=== PATIENT | female | born 1950 | race Caucasian/White ===

== ENCOUNTER 2024-01-18 09:41 | Outpatient (CLI) | payer MEDICARE, SELFPAY ==
--- OUTSIDE RECORDS SUMMARY | 2024-01-18 09:49 | XMS_ITS | Referral Summary ---
Author Organization [facility] Address [address] [place] [address] Care Team Providers Care Can Sealer Name Role Phone Jasmin Hodgson D.O. Primary Care Provide r Source Comments Patient records contain information from all sites at [facility]. For routine questions regarding patient records, call [phone] during business hours, M-F 8:00 AM - 5:00 PM Central Time. Record requests for emergency care only can be directed to [phone] at any time.[facility] Encounters Date Type Department Care Team Description 12/04/2023 Refill Department of Internal Medicine in [place], [place] [address] [place] [phone] Jasmin Perry D.O. Med Refill 11/30/2023 Orders Only [facility] Jasmin Perry D.O. Screening Mammogram Breast Cancer 11/19/2023 Clinical Communication Department of Internal Medicine in [place], [place] [address] [place] [phone] Jasmin Perry D.O. 11/19/2023 11:30 AM CDT Office Visit Department of Obstetrics and Gynecology in [place], [place] [address] [place] [phone] Leni Ballard M.D. Lichen Sclerosus Discharge Disposition: Home or Self Care from Last 3 Months Allergies Active Allergy Reactions Criticality Noted Date Comments Atorvastatin Myalgia 05/22/2006 Citalopram GI intolerance 01/11/2017 Isosorbide Mononitrate Headache High 05/31/2018 Severe headache Oyster Extract GI intolerance 03/23/2016 Oyster Soup Penicillin Itching 07/15/2009 Penicillins Itching 05/22/2006 Medications * This document contains information received from the source organization and may not represent a complete record from that organization. acetaminophen (TYLENOL) 500 mg tablet Take 1,000 mg by mouth once. 2 500 mg tabs q A.M. 7 Active co-enzyme Q-10 (for_CO Q-10) 100 mg capsule Take 100 mg by mouth once a week. Patient takes once a week Active aspirin [address] tabletIndicatio ns:Hypertensive Heart And Chronic Kidney Disease Without Heart Failure And With Stage 1 Chronic Kidney Disease Take 1 tablet (81 mg total) by mouth daily. 90 tablet 11 0 Active dilTIAZem (TIAZAC/TAZTIA XT) 360 mg ER capsule Take 1 capsule (360 mg total) by mouth daily. 90 capsule 3 1 Active nitroglycerin (NITROSTAT) 0.[address] 1 tablet (0.4 mg total) under the tongue every 5 (five) minutes as needed for chest pain. 100 tablet 1 2 Active rosuvastatin (CRESTOR) 20 mg tabletIndicatio ns:Hyperlipidem ia Take 1 tablet (20 mg total) by mouth daily. Takes in am 90 tablet 3 3 04/13/19 26 Active albuterol 90 mcg/actuation inhaler Inhale 1-2 puffs every 4 (four) hours as needed for wheezing or shortness of breath. 5 g 3 4 Active polyethylene glycol (MIRALAX) 17 gram/dose oral powder Take 17 g by mouth as needed for constipation. 3 Active fluticasone propionate (FLONASE) 50 mcg/actuation nasal sprayIndication s:Drip Post Nasal ADMINISTER 2 SPRAYS INTO EACH NOSTRIL TWO TIMES A DAY 48 g 3 4 Active Wegovy 0.25 mg/0.5 mL pen injector injectionIndica tions:Obesity Body Mass Index 30-39.9 Adult INJECT 0.25MG UNDER THE SKIN ONCE WEEKLY 2 mL 3 4 Active Additional Information Patient not taking.Reported on 11/19/2023 clobetasoL (Temovate) 0.05 % ointmentIndicat ions:Lichen Sclerosus Apply topically 2 (two) times a week. At bedtime 30 g 3 4 Active Wegovy 0.5 mg/0.5 mL pen injector injection INJECT 0.5MG UNDER THE SKIN ONCE WEEKLY 2 mL 1 4 Active Active Problems Patient Care Coordination No te Formatting of this note migh t be different from the original. 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 She has a history of injury to her ankles. If pain not improved with PT, she will let me or her PCP know, and I would recommend referral to Orthopedics. Fracture Foot Fifth Metatars al Nondisplaced Closed Initial Right 03/05/2021 Overview (03/20/2021): 03/14/21 Pain is improving. Provide ortho shoe today for use with prolonged walking. Body Mass Index 31.0 To 31.9 Adult 11/22/2020 Discrepancy Leg Length Acquired 07/16/2020 Overview (07/16/2020): PT assessed 06/2020. Left leg about 3/4 shorter than right. he has some chronic muscle tension in the right back from previous injuries. Wearing the right boot had taken work off the left muscle groups. In consultation with the [employer], she tried a 3/4 inch right heel lift which helped the back pain some, but not as much as the boot. She plans to try a 1 lift and follow up with Dr. Wilson. Hypertension Essential Primary 07/16/2020 Overview (03/20/2021): S/p renal artery stent 1976 (fibromuscular dysplasia?). Renal artery dopplers 2020 [facility] no sign stenosis. 03/14/21 Bp < 140/80 on diltiazem 360mg daily Assessment & Plan (07/16/2020 12:01 PM CDT): Repeat renal u/s w dopplers as planned by Dr. Noriega. Other Nonspecific Abnormal Finding Of Lung Field 01/17/2020 Overview (03/20/2021): noted on CT in August 2019 (3 and 4 mm). Per guidelines, optional repeat CT at 12 months; If unchanged, no further follow-up required 03/14/21 --CT chest without contrast to follow up lung nodules Chronic Obstructive Pulmonary Disease Without Ex acerbation 11/01/2019 Overview (06/10/2020): 09/2019 PFTs mild obstruction Assessment & Plan (11/01/2019 2:49 PM CDT): Chronic obstructive pulmonary disease is definitely playing into the etiology of the shortness of breath. Polyp Colon Personal History, Unspecified Type 0 05/31/2018 Overview (06/10/2020): ESOPHAGOGASTRODUODENOSCOPY 01/05/2011 COLONOSCOPY 08/07/2008 COLONOSCOPY 12/12/2013 COLONOSCOPY 08/29/2018 2mm polyp Repeat colonoscopy 08/2023 if we decide to continue screening. Cyst Renal 01/17/2018 Overview (01/17/2018): Bilateral per CT scan of abdomen and pelvis 12/09/2016. 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 She fell on 04/17/20 after falling asleep while sitting on a high chair. She fractured an ankle and noted that while she was wearing her ortho boot she had no back pain or hip pain. Pain recurred after stopping the boot. She saw Dr. Wilson in Sports Medicine on 12/30/20. 03/14/2021 --If she does not have acceptable improvement with water based rehab, the plan is to repeat MRI lumbar spine and refer to pain clinic for consideration of medial branch blocks to the left L4-L5 and L5-S1 facet joints with consideration of radiofrequency denervation. She wants to defer interventions unless pain is severe --Continue with [facility] for physical therapy --consider medication strategies: duloxetine, gabapentin or pregabalin --consider trying [facility], a self guided chronic pain kaylah with a biopsychosocial approach Assessment & Plan (06/10/2020 1:47 PM CDT): She checked in with [employer] who can provide heel lift/insert. --referral to [employer] for orthotics --referral to [facility] if measurements for leg length difference needed PreDiabetes 06/12/2017 Overview (03/20/2021): A1C 6 in May 2019. 03/14/21 Due for repeat A1C w next labs. Osteoporosis 06/12/2017 Overview (03/20/2021): 04/25/2020 right distal lateral malleolus fracture after stepping off a high chair with foot numbness (due to falling asleep in the chair with feet/ankles crossed). 02/2021 right fifth planax fracture after toe injury DEXA 2018 and DEXA 06/2020 Osteopenia. 06/2020 VitD 28, Calcium 9.7, alk phos 123, PTH 49 03/14/21 Given the above fractures, I recommended bisphosphonate therapy. She will have a dental exam and any needed dental work, then start fosamax 70mg weekly x 5 years. --Repeat DEXA 03/2023. --Continue regular exercise, strength training 2x/week. --Take Vitamin D 3 1000 IU daily --Obtain Calcium 1200mg daily from all sources (diet + supplement) Assessment & Plan (06/10/2020 1:58 PM CDT): --repeat DEXA --repeat VitD, Calcium, PTH, and protein levels (elevated at [facility]) Anxiety 12/25/2016 Overview (03/20/2021): GAD7 Score 12/10/2016 10/16/2019 ALEKSANDER-7 Total Score (max 21) 6 1 PHQ9 Score 10/16/2019 PHQ-9 Total Score (max 27) 3 Tumor Benign Adrenal Left 12/10/2016 Overview (06/10/2020): 2 cm (noted on CT in 08/2019) She was evaluated by Dr. Oliveira with endocrinology. She had a negative biochemical evaluation as well as repeat abdominal CT imaging. Results were consistent with a non-functional benign adrenal adenoma. Re-evaluate the patient in the future only if she redevelops spells, unexplained swelling, Cushingoid appearing features, unexplained hypertension, or hypokalemia. Assessment & Plan (11/01/2019 2:48 PM CDT): October 15 CT shows a benign adenoma Lichen Sclerosus 05/18/2016 Overview (11/19/2023): Stable vulvar findings. Occasional exacerbations well managed with clobetasol oitment. Vulvar care handout provided in the past and she counseled on lifestyle modifications that can help with this in the past. Continue topical clobetasol ointment twice weekly at bedtime, and she was encouraged to do this on a scheduled basis. Smoking Tobacco Use Personal History 05/18/2016 Coronary Artery Disease With Stable Angina 04/23 Overview (03/20/2021): History of microvascular angina. Seen by Dr. Heard 11/[address] Hatch 09/2011, Dr. Gomes 07/2019. Normal coronaries on [facility] 01/2011 (after abnormal NST; no endothelial function studies performed); Mild CAD 08/2005. Intolerant to isosorbide mononitrate??(severe headache). She is seen by Dr. Noriega at [facility] and is now enrolled in a cardiac study related to small vessel coronary artery disease. Diltiazem increased from 240mg to 320mg 07/15/20. For unclear reasons, she had two months without angina following MAB infusion for COVID-19. 03/14/21 Consider adding Ranexa. Assessment & Plan (07/26/2023 10:47 AM CDT): Patient is followed by cardiology. Assessment & Plan (06/10/2020 1:40 PM CDT): Follow up with Dr. Noriega as planned Hypercholesterolemia 03/09/2011 Overview (03/20/2021): Images from the original note were not included. 03/14/21 LDL < 70 on rosuvastatin 20mg daily Assessment & Plan (06/10/2020 1:42 PM CDT): Continue simvastatin 20mg daily Anisocoria 12/16/2009 Overview (05/04/2017): Right pupil larger than Left pupil Stenosis Renal Artery 06/30/2008 Overview (07/28/2023): S/p renal artery stent 1976 (fibromuscular dysplasia?). 1976, Dr. Powell at [facility] for malignant hypertension. Assessment & Plan (11/01/2019 2:44 PM CDT): Her blood pressure is normal. Renal artery stenosis has improved since having surgery 20 years ago. Resolved Problems Problem Noted Date Diagnosed Date Resolved Date Infection Upper Respiratory 05/25/2023 05/25/2023 COVID-19 Infection 11/23/2020 Pressure Head 07/16/2020 03/20/2021 Overview (07/16/2020): When she walks she gets tightness and achiness that goes to the back of the head and neck. 07/15/20 Dr. Noriega ordered ordered a CTA head and neck. Abnormality Of Plasma Protein Unspecified 06/10/2020 03/20/2021 Overview (03/20/2021): Normalized. No further evaluation needed. Fracture Fibula Lateral Mall eolus Nondisplaced Sequela Right 06/10/2020 03/20/2021 Pain Shoulder Right 05/13/2020 03/14/20 21 Adrenal Gland Disorder 11/01/201906/10 Overview (11/01/2019): Adrenal gland disorder Assessment & Plan (11/01/2019 2:47 PM CDT): CT of the chest done in September showed a nodule on her adrenal gland as well as 2 pulmonary nodules. Narrative & Impression EXAM: CT CHEST WITHOUT IV CONTRAST 3D/MIPS: 3D Post-Processing performed on a dependent workstation. ?? COMPARISON: None ?? FINDINGS: Indeterminate solid pulmonary nodules measure 3 mm in the lateral right lower lobe (series 3, image 444) and 4 mm in the posterior right lower lobe (series 3, image 382). Follow-up guidelines are below. Subsegmental atelectasis in the right middle lobe, lingula, and left base. No consolidation. No pleural effusion. No pneumothorax. Central tracheobronchial tree is patent. ?? Normal heart size. No pericardial effusion. Normal caliber thoracic aorta with mild calcification. No thoracic lymphadenopathy. ?? 2.0 cm left adrenal nodule compatible with adrenal. Cholecystectomy. Mild degenerative change. Segmentation anomaly at C2 with convex left curve. ?? GUIDELINES FOR FOLLOW-UP of newly detected solid nodules incidentally detected on CT in persons 35 years or older. (2017 revision) ?? LOW-RISK PATIENT (Minimal or absent history or smoking or of other known risk factors) ?? For multiple nodules, size of largest nodule: <6mm- No routine follow-up required 6mm or>- CT at 3-6 months, then consider CT at 18-24 months ?? HIGH-RISK PATIENT (History of smoking or of other known risk factors) For multiple nodules, size of largest nodule: <6mm- Optional CT at 12 months*; If unchanged, no further follow-up required 6mm or>- CT at 3-6 months, then consider CT at 18-24 months ?? IMPRESSION: 1. Indeterminate solid pulmonary nodules measuring 4 mm or smaller. Follow-up guidelines are below. 2. Scattered subsegmental atelectasis. No consolidation or effusion. Tachycardia Paroxysmal 11/01/201906/10 Overview (06/10/2020): Paroxysmal tachycardia with low oxygen saturations Paroxysmal tachycardia with low oxygen saturations Last Assessment & Plan: She had recently been in the [facility] and was at an elevation of over 9200 ft. During that time she was feeling chest heaviness and heart palpitations. She was very short of breath. She did have a pulse oxygen machine with her as well as a portable oxygen machine. These belong to her . She had been having symptomatology of heavy chest and shortness of breath for years. She had recent workup with [facility] which yielded negative results for any blockage or pulmonary issues. She is requesting a referral to [facility]. She feels that something is wrong and she would like to get to the bottom of it. She showed me a log that she kept. On October 08 she became short of breath with chest heaviness. Her pulse went to 136 and her oxygen saturation went down in 79%. She has many days of oxygen saturation and pulse readings. Fortunately she had had her portable oxygen with her was able to wear oxygen. She becomes short of breath when walking. She is relating an incident over 20 years ago when she was having similar symptoms. She had surgery to remove a growth that was pushing on her renal artery. She is feeling similar today and is looking for a referral. She will go to the ER if she should have further symptoms. Assessment & Plan (11/01/2019 2:44 PM CDT): She had recently been in the [facility] and was at an elevation of over 9200 ft. During that time she was feeling chest heaviness and heart palpitations. She was very short of breath. She did have a pulse oxygen machine with her as well as a portable oxygen machine. These belong to her . She had been having symptomatology of heavy chest and shortness of breath for years. She had recent workup with [facility] which yielded negative results for any blockage or pulmonary issues. She is requesting a referral to [facility]. She feels that something is wrong and she would like to get to the bottom of it. She showed me a log that she kept. On October 08 she became short of breath with chest heaviness. Her pulse went to 136 and her oxygen saturation went down in 79%. She has many days of oxygen saturation and pulse readings. Fortunately she had had her portable oxygen with her was able to wear oxygen. She becomes short of breath when walking. She is relating an incident over 20 years ago when she was having similar symptoms. She had surgery to remove a growth that was pushing on her renal artery. She is feeling similar today and is looking for a referral. She will go to the ER if she should have further symptoms. Elevated Liver Enzyme Test 12/12/2018 0 06/10/2020 Cough Unspecified Type 12/05/201706/10 Hypercalcemia 12/05/2017 06/10/2020 Pain Flank 08/30/2017 06/10/2020 Overview (08/30/2017): Right History Of Falling 08/30/2017 1 Release Carpal Tunnel Status Post 06/12/2017 06/10/2020 Carpal tunnel syndrome 11/17/201606/10 Hypertensive Heart And Chron ic Kidney Disease Without Heart Failure With Stage 1 To 4 Chronic Kidney Disease Or Unspecified Chronic Kidney Disease 11/13/2016 06/10/2020 Elevated Alkaline Phosphatase 05/18/2016 06/10/2020 Fatigue 05/18/2016 06/10/2020 Hemorrhoids 05/18/2016 06/10/2020 Prolapse Vaginal Vault Post Hysterectomy 05/18/2016 06/10/2020 Scoliosis 05/18/2016 03/20/2021 Reaction Stress Acute 05/27/20152020 Eczema 08/24/2013 06/10/2020 High Risk Medication 08/09/2013 021 Pain Knee 12/29/2010 06/10/2020 Degeneration Disc Cervical 08/28/2010 0 06/10/2020 Vaginitis Atrophic 12/16/2009 Ileus Gallstone 10/28/2009 08/08/2018 Overview (08/18/2016): Gallstone Osteoarthritis 06/30/2008 06/10/2020 Atherosclerosis Renal Artery 06/30/2008 06/10/2020 Gastroesophageal Reflux Disease 06/25/2008 06/10/2020 Immunizations Name Administration Dates Next Due DTaP (Infanrix, [employer]) 03/27/2009 Influenza high dose QV(65 ye ars or older) (PF) 01/23/2020 Influenza, Unspecified 01/28/2016,2014,11/20/2013,2012,02/08/2012,12/29/2010,02/10/2010,1 05/05/2008,01/23/2008,02/10/2007, 006,02/18/2004 PCV20 07/08/2023(Deferred: Patient gianna christine) PPD Test 10/10/2018 RZV (SHINGRIX) 07/08/2023(Deferred: Patient gianna christine) SARS-COV-2 (COVID-19) - MODE RNA BIVALENT(Discontinued) 07/08/2023(Deferred: Patient decision) Tdap 07/08/2023(Deferred: Patient decision),03/27/2009 influenza trivalent high dos e (HD)(PF) 03/27/2019,01/16/2018,04/10/2017 influenza trivalent vaccine (6 months and older)(PF) 07/08/2023(Deferred: Patient decision) Social History Tobacco Use Types Packs/Day Years Used Date Smoking Tobacco: Former Cigarettes 1.5 43 1 962 - 2005 Passive Smoke Exposure: Past Smokeless Tobacco: Never Tobacco Cessation:Counseling Given: Not Answered Alcohol Use Standard Drinks/Week Comments Yes 0 (1 standard drink = 0.6 oz pur e alcohol) 2-4 times per month Humiliation, Afraid, Rape, and Kick questionnair e Answer Date Recorded Within the last year, have y ou been afraid of your partner or ex-partner? No 01/22/2023 Within the last year, have y ou been humiliated or emotionally abused in other ways by your partner or ex-partner? No Within the last year, have y ou been kicked, hit, slapped, or otherwise physically hurt by your partner or ex-partner? No 01/22/2023 Within the last year, have y ou been raped or forced to have any kind of sexual activity by your partner or ex-partner? No 01/22/2023 Social Connection and Isolat ion Panel [NHANES] Answer Date Recorded In a typical week, how many times do you talk on the phone with family, friends, or neighbors? More than three times a week 12/07/2021 How often do you get togethe r with friends or relatives? More than three times a week 12/07/2021 How often do you attend chur or mandaen services? Patient declined 12/07/2021 Do you belong to any clubs o r organizations such as baptist groups, unions, fraternal or athletic groups, or school groups? No 12/07/2021 How often do you attend meet ings of the clubs or organizations you belong to? Never 12/07/2021 Are you , , di vorced, , never , or living with a partner? 12/07/2021 AUDIT-C Answer Date Recorded Q1: How often do you have a drink containing alc ohol? 2-4 times a month 12/07/2021 Q2: How many drinks containi ng alcohol do you have on a typical day when you are drinking? 1 or 2 12/07/2021 Q3: How often do you have si x or more drinks on one occasion? Never 12/07/2021 Overall Financial Resource Strain (CARDIA) Answe r Date Recorded How hard is it for you to pa y for the very basics like food, housing, medical care, and heating? Not hard at all 01/19/2023 PHQ-2 Answer Date Recorded PHQ-2 Score 0 07/28/2023 [facility] - Occupational Stress Questionnaire Answer Date Recorded Do you feel stress - tense, restless, nervous, or anxious, or unable to sleep at night because your mind is troubled all the time - these days? Not at all 12/07/2021 Exercise Vital Sign Answer Date Recorde d On average, how many days pe r week do you engage in moderate to strenuous exercise (like a brisk walk)? 2 days 01/19/2023 On average, how many minutes do you engage in exercise at this level? 40 min 01/19/2023 Hunger Vital Sign Answer Date Recorded Within the past 12 months, y ou worried that your food would run out before you got the money to buy more. Never true 01/20/20 Within the past 12 months, t he food you bought just didn't last and you didn't have money to get more. Never true 01/19/2023 PRAPARE - Transportation Answer Date Re corded In the past 12 months, has l ack of transportation kept you from medical appointments or from getting medications? No 12/28 In the past 12 months, has l ack of transportation kept you from meetings, work, or from getting things needed for daily living? No 01/19/2023 Depression Answer Date Recor ded PHQ-9 Total Score (max 27) 3 10/15 Nutrition Answer Date Recorded On average, how many serving s of fruits and vegetables do you eat per day (serving size is equal to 1 cup or approximately the size of a tennis ball)? 0-2 01/19/2023 Dental Answer Date Recorded Dental: Regular Dentist Yes 05/28/19 Employment Answer Date Recorded Employment status Retired 01/19/2023 Housing Stability Answer Date Recorded What is your living situation today? I have a [employer] place to live 01/19/2023 Education Answer Date Recorded What is the highest level of school you have completed or the highest degree you have received? 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 Not on file Not on file Not on file Last Filed Vital Signs Vital Sign Reading Time Taken Comments Blood Pressure 125/55 11/19/2023 11:31 AM CDT Pulse 67 11/19/2023 11:31 AM CDT Temperature 36 ??C (96.8 ??F) 11/19/2023 11:31 AM CDT Respiratory Rate 16 09/24/2023 12:53 PM CDT Oxygen Saturation 96% 09/24/2023 12:53 PM CDT Inhaled Oxygen Concentration - - Weight 69.6 kg (153 lb 7 oz) 11/19/2023 11:31 AM CDT Height 151.6 cm (4' 11.69) 11/19/2023 11:31 AM CDT Body Mass Index 30.28 11/19/2023 11:31 AM CDT Plan of Treatment Upcoming Encounters Date Type Department Care Team (Late st Contact Info) Description 01/26/2024 10:30 AM CDT Appointment Department of Radiology in [place] [address] [place] [phone] Jasmin Hodgson D.O. [address] [place] [phone] Discharge Disposition: Home or Self Care Goals Goal Patient Goal Type Associated Problems Recent Progress Patient-Stated? Author Eat a balanced, healthy diet Diet No Tiffanie Jarvis R.N. Note: Continue eating a balanced, healthy diet 30 minutes 3x a week Exercise No Tiffanie Jarvis R.N. Increase physical activity Exercise No Tiffanie Jarvis R.N. Improve balance, strength, and endurance Exercise No Tiffanie Jarvis R.N. 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 A negative Cologuard result indicates a low likelihood that a colorectal cancer (CRC) or advanced adenoma (adenomatous polyps with more advanced pre-malignant features) ??is present. The chance that a person with a negative Cologuard test has a colorectal cancer is less than 1 in 1500 (negative predictive value >99.9%) or has an ??advanced adenoma is less than ??5.3% (negative predictive value 94.7%). These data are based on a prospective cross-sectional study of 10,000 individuals at average risk for colorectal cancer who were screened with both Cologuard and colonoscopy. (Alem Nesbitt al, N Engl J Med 2014;370(14):7850-2078) The normal value (reference range) for this assay is negative. COLOGUARD RE-SCREENING RECOMMENDATION: Periodic colorectal cancer screening is an important part of preventive healthcare for asymptomatic individuals at average risk for colorectal cancer. ??Following a negative Cologuard result, the [place] Cancer Society and U.S. Multi-Society Task Force screening guidelines recommend a Cologuard re-screening interval of 3 years. References: [place] [employer] Guideline for Colorectal Cancer Screening: https://www.cancer.org/cancer/ctprz-gjmoqb-hduedy/detection- diagnosis-staging/acs-recommendations.html.; Anibal DK, Rupinder CR, Jacqueline GipsonK, Colorectal Cancer Screening: Recommendations for Physicians and Patients from the U.S. Multi-Society Task Force on Colorectal Cancer Screening , Am J Gastroenterology 2017; 112:1112-6058. TEST DESCRIPTION: Composite algorithmic analysis of stool DNA-biomarkers with hemoglobin immunoassay. ?? Quantitative values of individual biomarkers are not reportable and are not associated with individual biomarker result reference ranges. Cologuard is intended for colorectal cancer screening of adults of either sex, 45 years or older, who are at average-risk for colorectal cancer (CRC). Cologuard has been approved for use by the U.S. FDA. The performance of Cologuard was established in a cross sectional study of average-risk adults aged 50-84. Cologuard performance in patients ages 45 to 49 years was estimated by sub-group analysis of near-age groups. Colonoscopies performed for a positive result may find as the most clinically significant lesion: colorectal cancer [4.0%], advanced adenoma (including sessile serrated polyps greater than or equal to 1cm diameter) [20%] or non- advanced adenoma [31%]; or no colorectal neoplasia [45%]. These estimates are derived from a prospective cross-sectional screening study of 10,000 individuals at average risk for colorectal cancer who were screened with both Cologuard and colonoscopy. (Alem George et al, N Engl J Med 2014;370(14):5152-8871.) Cologuard may produce a false negative or false positive result (no colorectal cancer or precancerous polyp present at colonoscopy follow up). A negative Cologuard test result does not guarantee the absence of CRC or advanced adenoma (pre-cancer). The current Cologuard screening interval is every 3 years. ([place] [employer] Society and U.S. Multi-Society Task Force). Cologuard performance data in a 10,000 patient pivotal study using colonoscopy as the reference method can be accessed at the following location: www.IM5/results. Additional description of the Cologuard test process, warnings and precautions can be found at www.cologuard.com. Stool (Stool) 08/24/2023 8:1 0 AM CDT 08/25/2023 10:18 AM CDT us Jasmin Hodgson D.O. LAB BODY FLUIDS AND S TOOLS ORDERABLES Final Result [facility] [address] [place] [address] [facility] [address] [facility], [address] [place] [address] * Lipid Panel (07/28/2023 1:04 PM CDT) Triglycerides 82 mg/dL 07/28/2023 3:09 PM CDT [facility] Comment: ----REFERENCE VALUE---- Normal: <150 mg/dL Borderline High: 150-199 mg/dL High: 200-499 mg/dL Very High: > or =500 mg/dL Cholesterol, Total 140 mg/dL 2023 3:09 PM CDT [facility] Comment: ----REFERENCE VALUE---- Desirable: < 200 mg/dL Borderline High: 200 - 239 mg/dL High: > or = 240 mg/dL Cholesterol, LDL, Calculated 50 mg/dL 07/28/2023 3:09 PM CDT [facility] Comment: ----REFERENCE VALUE---- Desirable: <100 mg/dL Above Desirable: 100-129 mg/dL Borderline High: 130-159 mg/dL High: 160-189 mg/dL Very High: >=190 mg/dL ----ADDITIONAL INFORMATION---- LDL cholesterol calculated using the Ansari/NIH equation. Cholesterol, HDL 74 >=50 mg/dL 07/28/19 3:09 PM CDT [facility] Cholesterol, Non-HDL, Calculated 66 mg/dL 07/28/2023 3:09 PM CDT [facility] Comment: ----REFERENCE VALUE---- Desirable: <130 mg/dL Above Desirable: 130-159 mg/dL Borderline High: 160-189 mg/dL High: 190-219 mg/dL Very High: > or =220 mg/dL Fasting (8 HR or more) Yes 07/28/2023 1:10 PM CDT [facility] Blood (Blood, Venous) 07/28/2023 1:04 PM CDT 07/28/2023 1:10 PM CDT us Jasmin Hodgson D.O. LAB BLOOD ADD-ON Makenna leal Result [facility] [address] [place] [address], [facility] [place] [address] [place] [address] * (ABNORMAL) Hemoglobin A1c (07/28/2023 1:04 PM CDT) Hemoglobin A1c, B 5.8(H) 4.2 - 5.6 % 07/28/2023 2:23 PM CDT OW[facility] Comment: Hemoglobin A1c values of 5.7-6.4 percent indicate an increased risk for developing diabetes mellitus. In diabetic patients, HbA1c goals should be discussed with healthcare provider. Blood (Blood, Venous) 07/28/2023 1:04 PM CDT 07/28/2023 1:10 PM CDT us Jasmin Hodgson D.O. LAB BLOOD ADD-ON Makenna l Result [facility] [address] [place] [address], [facility] [place] [address] [place] [address] * BI Breast Screening Bilateral with Tomosynthesis (12/18/2022 9:23 AM CDT) Anatomical Region Laterality Modality Breast, Breast Imaging RST L OS, Breast Imaging ARZ LOS, Breast Imaging FLA LOS Bilateral Mammography 12/18/2022 9:40 AM CDT Impressions 12/18/2022 9:42 AM CDT Negative. RECOMMENDATION: ??Annual Screening Mammogram ASSESSMENT: ??BI-RADS: 1: Negative. Narrative 12/18/2022 9:42 AM CDT EXAM: ??BI BREAST SCREENING BILATERAL WITH TOMOSYNTHESIS Current study was evaluated with a Computer Aided Detection (CAD) system. INDICATION: ??Screening mammogram. COMPARISON: ??Prior exam(s) were available and reviewed for comparison. DENSITY: ??b. There are scattered areas of fibroglandular density. FINDINGS: ??No mammographic findings of malignancy. Procedure Note Tima Miles M.D. - 12/18/2022 EXAM: BI BREAST SCREENING BILATERAL WITH TOMOSYNTHESIS Current study was evaluated with a Computer Aided Detection (CAD) system. INDICATION: Screening mammogram. COMPARISON: Prior exam(s) were available and reviewed for comparison. DENSITY: b. There are scattered areas of fibroglandular density. FINDINGS: No mammographic findings of malignancy. IMPRESSION: Negative. RECOMMENDATION: Annual Screening Mammogram ASSESSMENT: BI-RADS: 1: Negative. Jasmin Hodgson D.O. IMWolf BI PROCEDURES Fin al Result * CT Chest without IV Contrast (04/01/2021 10:33 AM KEYCASE ASSEMBLER) Anatomical Region Laterality Modality Chest, Thoracic RST LOS, Tho racic ARZ LOS, Thoracic FLA LOS N/A Computed Tomography 04/01/2021 11:4 7 AM KEYCASE ASSEMBLER Impressions 04/01/2021 11:50 AM KEYCASE ASSEMBLER Stable sub-4 mm pulmonary nodules compared to 09/25/2019. No new or enlarging pulmonary nodules. Consider additional follow-up CT in 12-18 months. Narrative 04/01/2021 11:50 AM KEYCASE ASSEMBLER EXAM: CT CHEST WITHOUT IV CONTRAST 3D/MIPS: 3D Post-Processing performed on a dependent workstation. COMPARISON: 09/25/2019 FINDINGS: Scattered bilateral sub-4 mm pulmonary nodules are unchanged compared to 09/25/2019. No new or enlarging pulmonary nodules. Stable bibasilar scarring/atelectasis. No pleural effusion or evidence for acute infection. Central tracheobronchial tree is clear. Normal heart size. No pericardial effusion. Aortic calcifications. No lymphadenopathy. Cholecystectomy. Right renal cyst. Stable 2 cm left adrenal adenoma. Scoliotic curvature of the spine. Mild spondylosis. No acute or suspicious bone or soft tissue finding. Procedure Note Sawyer Russ M.D. - 04/01/2021 EXAM: CT CHEST WITHOUT IV CONTRAST 3D/MIPS: 3D Post-Processing performed on a dependent workstation. COMPARISON: 09/25/2019 FINDINGS: Scattered bilateral sub-4 mm pulmonary nodules are unchangedcompared to 09/25/2019. No new or enlarging pulmonary nodules. Stable bibasilar scarring/atelectasis. No pleural effusion or evidence for acuteinfection. Central tracheobronchial tree is clear. Normal heart size. No pericardial effusion. Aortic calcifications. No lymphadenopathy. Cholecystectomy. Right renal cyst. Stable 2 cm left adrenal adenoma.Scoliotic curvature of the spine. Mild spondylosis. No acute or suspicious bone orsoft tissue finding. IMPRESSION: Stable sub-4 mm pulmonary nodules compared to 09/25/2019. No new orenlarging pulmonary nodules. Consider additional follow-up CT in 12-18 months. Nga Yip M.D., M.P.H. IMG CT PROCEDURES Final Result * HCV Ab w/Reflex to HCV PCR, S (medicare) (05/14/2016 8:10 AM KEYCASE ASSEMBLER) HXHCV Ab [facility] Negative Negative POWERCHART Comment: Udfoob-ik-qgoeof ratio is <1.00. Test Performed by: [place] [address] Blood Bank Attendant: Kvng Ayers II, M.D., Ph.D. Blood 05/14/2016 8:10 AM KEYCASE ASSEMBLER Branden Woods M.D. LAB MICROBIOLOGY - BLOOD ORDERAB LES Final Result POWERCHART from Last 3 Months or Most Recently Relevant to Health Maintenance Insurance [facility] Advance Directives For more information, please contact: [phone] Documents on File Type Date Recorded Patient Perinatal Social Worker Expl anation Advance Directives 12/13/2018 2:15 PM POA for healthcare Healthcare Agents on File Name Relationship Healthcare Agent Relationshi p Communication Nuria Kirkland Daughter Health Care Agent Jazmine Salmon Daughter First Alternate Health Car e Agent Care Teams Can Sealer Relationship Specialty Start Date End Date Jasmin Hodgson D.O. [address] [place] [phone] PCP - General Internal Medicine 06/03/21
--- OUTSIDE RECORDS SUMMARY | 2024-01-18 09:49 | XMS_ITS | Encounter Summary ---
Author Organization [facility] Address [address] [place] [address] Care Team Providers Care Breakfast Supervisor Name Role Phone Jasmin Hodgson D.OLexa Primary Care Provide r Reason for Visit * Reason Comments Med Refill Encounter Details Date Type Department Care Team (Late st Contact Info) Description 12/04/2023 Refill Department of Internal Medicine in [place], [place] [address] [phone] Jasmin Hodgson, D.O. [address] [phone] Med Refill Social History Tobacco Use Types Packs/Day Years Used Date Smoking Tobacco: Former Cigarettes 1.5 43 1 962 - 2005 Passive Smoke Exposure: Past Smokeless Tobacco: Never Alcohol Use Standard Drinks/Week Comments Yes 0 [...] week 12/07/2021 How often do you attend [facility] or buddhism services? Patient declined 12/07/2021 Do you belong to any clubs o r organizations such as jew groups, unions, fraternal or athletic groups, or [...] Answer Date Recorded PHQ-2 Score 0 07/28/2023 [facility] [place] [facility] Occupat ional Health - Occupational Stress [...] money to buy more. Never true 01/20/20 23 Within the past 12 months, t he [...] your living situation today? I have a [facility] place to live 01/19/2023 Education Answer Date Recorded What is the highest level of school you have completed or the highest degree you have received? 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 [address] [place] [address] Discharge Disposition: Home or Self Care documented as of this encounter Goals Goal Patient Goal Type Associated Problems Recent Progress Patient-Stated? Author Eat a balanced, healthy diet Diet No Tiffanie Jarvis R.N. Note: Continue eating a balanced, healthy diet 30 minutes 3x a week Exercise No Tiffanie Jarvis R.N. Increase physical activity Exercise No Tiffanie Jarvis R.N. Improve balance, strength, and endurance Exercise No Tiffanie Jarvis R.N. Note: Improve strength in ankles documented as of this encounter Visit Diagnoses Not on filedocumented in this encounter Additional Health Concerns Assessment Noted Time PHQ-9 Depression Total Score: 3 10/16/19 20 1:30 PM CDT documented as of this encounter Care Teams Breakfast Supervisor Relationship Specialty Start Date End Date Jasmin Hodgson D.O. [address] [place] [phone] PCP - General Internal Medicine 06/03/21 documented as of this encounter
--- OUTSIDE RECORDS SUMMARY | 2024-01-18 09:49 | XMS_ITS | Encounter Summary ---
Author Organization [facility] Address [address] [place] [address] Care Team Providers Care Aircraft Technician Name Role Phone Jasmin Hodgson D.O. Primary Care Provide r Reason for Referral * Outpatient (Routine) - Authorized Specialty Diagnoses / Procedures Referred By Contac t Referred To Contact Obstetrics and Gynecology Diagnoses Lichen Sclerosus Rosita Beckham M.D. [facility] Referral ID Status Reason Start Date Expiration Date V isits Requested Visits Authorized [id number] Authorized 11/19/2023 05/20/2025 1 1 Reason for Visit * Reason Comments Gynecologic Exam No concerns * Appointment Request (Routine) - Closed Specialty Diagnoses / Procedures Referred By Contac t Referred To Contact Obstetrics and Gynecology Referral ID Status Reason Start Date Expiration Date Visits Re quested Visits Authorized [id number] Closed 09/07/2023 09/06/2024 1 1 Encounter Details Date Type Department Care Team (Late st Contact Info) Description 11/19/2023 11:30 AM CDT Office Visit Department of Obstetrics and Gynecology in [place], [place] [address] [place] [phone] Rosita Beckham M.D. Lichen Sclerosus Discharge Disposition: Home or Self Care Social History Tobacco Use Types Packs/Day Years [...] How often do you attend chur or episcopal services? Patient declined 12/07/2021 Do you belong to any clubs o r organizations such as methodist groups, unions, fraternal or athletic groups, or [...] Answer Date Recorded PHQ-2 Score 0 07/28/2023 [facility] - Occupational Stress Questionnaire Answer Date Recorded [...] Date Recorded Dental: Regular Dentist Yes 05/28/19 21 Employment Answer Date Recorded Employment status Retired 01/19/2023 Housing Stability Answer Date Recorded What is your living situation today? I have a [facility] place to live 01/19/2023 Education Answer Date Recorded What is the highest level of school you have completed or the highest degree you have received? 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 - 11/19/2023 11:30 AM CDT Images from the original note were not included. SUBJECTIVE DYE COLORIST DYER FOLLOW UP CHIEF COMPLAINT/REASON FOR VISIT Follow up of vulvar lichen sclerosus HISTORY OF PRESENT ILLNESS Rosalba is a 73 y.o. female who presents for follow up of vulvar lichen sclerosis. I first saw nAgelina horton in September of 2014 but she was seen by my partner, Dr. Gamino as far back as 2009. She was initially seen for vaginal issues including soreness in the vaginal area and pain around the rectal area. She was treated with Estrace cream but continued to have irritation externally with that. Therefore, she was started on clobetasol ointment in 2009 and did not followup after that. When I initially saw her in September of 2014, she reported only using it as needed and not on a regular basis. She continued to report irritation around the rectal area particularly when she was constipated at which time she felt like the area would tear and then be sore for a period of time. When I saw her in September of 2014 on exam I noted scarring and thinning of the mucosa on the non hair-bearing areas of the external genitalia. There was whitish discoloration and a somewhat mottled appearance with some hyperpigmentation on the perineal body just anterior to the rectum and extending onto the labia minora and anteriorly over the clitoral steele. The labia minora were fused to the labia majora bilaterally and the introitus was narrowed due to scarring. Her vulva was biopsied in 2016 and showed pigmentation of the basal layer. She uses clobetasol ointment twice a week at bedtime for treatment of the. Sometimes she does forget. She went to [place], [place], for 2 weeks last spring. She spent a lot time in the pool and the chlorine seemed to bother her. When she got home from her trip, it was sore, otherwise, this hasn't really bothered her since I saw her last in 10/2021. Currently, her symptoms are stable and she is not having any issues with this. The patient's allergies and current medications were reviewed and updated as appropriate. SYSTEMS REVIEW Musculoskeletal: Positive for back pain. All other systems reviewed and are negative. OBJECTIVE Vitals: 11/19/23 1131 BP: 125/55 Patient Position: Sitting Pulse: 67 Temp: 36 ??C Height: 151.6 cm Weight: 69.6 kg TempSrc: Temporal PHYSICAL EXAM Constitutional General: She is not in acute distress. Appearance: Normal appearance. She is well-developed. Exam conducted with a relief pilot present. Genitourinary Urethral meatus normal. Genitourinary Comments: Thinning of the mucosa on the non hair-bearing areas. The introitus is narrowed. Pubic hair distribution is normal. There is hyperpigmentation on the perineal body extending anteriorly onto the medial labia minora bilaterally. In the past, whitish discoloration of the inner labia extended posteriorly in the midline and circumferentially around the rectum, and this is limited to the inner labia at this time. Right Labia: skin changes. Right Labia: No tenderness or lesions. Left Labia: skin changes. Left Labia: No tenderness or lesions. Labial fusion (Of labia minora to labia majora with obliteration of the clitoral steele and extreme narrowing of the introitus.) present. Pelvic exam was performed with patient in the lithotomy position. HENT Head: Normocephalic and atraumatic. Eyes General: Vision grossly intact. Pulmonary Effort: Pulmonary effort is normal. No respiratory distress. Neurological Mental Status: She is alert. Mental status is at baseline. Skin Findings: No lesion or rash. Psychiatric Mood and Affect: Mood normal. Behavior: Behavior normal. ASSESSMENT / PLAN Angelina Radford is a 73 y.o. female who presents for follow up of vulvar lichen sclerosus. #1 Lichen Sclerosus Overview: Stable vulvar findings. Occasional exacerbations well managed with clobetasol oitment. Vulvar care handout provided in the past and she counseled on lifestyle modifications that can help with this inthe past. Continue topical clobetasol ointment twice weekly at bedtime, and she was encouraged to do this on a scheduled basis. Orders: - clobetasoL (Temovate) 0.05 % ointment; Apply topically 2 (two) times a week. At bedtime, StartingMon 11/22/2023, Normal - Obstetrics and Gynecology office visit (clinic); Future; Expected date: 11/18/2024 Followup: In 1 year for follow up of vulvar lichen sclerosus.. documented in this encounter Miscellaneous Notes * Addendum Note - Rosita Beckham M.D. - 11/19/2023 11:30 AM CDTAddended by: ROSITA BECKHAM on: 11/19/2023 03:14 PM Modules accepted: Orders documented in this encounter Plan of Treatment Upcoming Encounters Date Type Department Care Team (Late st Contact Info) Description 01/26/2024 10:30 AM CDT Appointment Department of Radiology in [address] [phone] Jasmin Hodgson D.O. [address] [address] Discharge Disposition: Home or Self Care Scheduled Referrals Name Type Priority Associated Diagnoses Order Schedule Obstetrics and Gynecology office visit (clinic) Outpatient Referral Routine Lichen Sclerosus Expected: 11/18/2024, Expires: 02/18/2025 documented as of this encounter Goals Goal [...] documented as of this encounter Visit Diagnoses Diagnosis Lichen Sclerosus documented in this encounter Additional Health Concerns Assessment Noted Time PHQ-9 Depression Total Score: 3 10/16/19 20 1:30 PM CDT documented as of this encounter Care Teams Aircraft Technician Relationship Specialty Start Date End Date Jasmin Hodgson D.O. [address] [phone] PCP - General Internal Medicine 06/03/21 documented as of this encounter
--- OUTSIDE RECORDS SUMMARY | 2024-01-18 09:49 | XMS_ITS ---
Author Organization [facility] Address [address] [place] [address] Care Team Providers Care Test Man Name Role Phone Unavailable Unavailable Unavailable Surgery Details Not on file Complications Check Surgery Details section. Procedure Estimated Blood Loss Check Surgery Details section. Procedure Findings Check Surgery Details section. Procedure Specimens Taken Check Surgery Details section.
--- OUTSIDE RECORDS SUMMARY | 2024-01-18 09:49 | XMS_ITS | Encounter Summary ---
Author Organization [facility] Address [address] [place] [address] Care Team Providers Care Rn Occupational Health Name Role Phone Jasmin Hodgson D.O. Primary Care Provide r Reason for Referral * Outpatient (Routine) - Authorized Specialty Diagnoses / Procedures Referred By Miranda t Referred To Contact Diagnoses Screening Mammogram Breast Cancer Procedures BI Breast Screening Bilateral with Tomosynthesis Jasmin Hodgson D.O. [address] [place] [phone] Phone: tel: fax: [facility] Region Referral ID Status Reason Start Date Expiration Date V isits Requested Visits Authorized [id number] Authorized 11/30/2023 11/29/2024 1 1 Encounter Details Date Type Department Care Team (Late st Contact Info) Description 11/30/2023 Orders Only [facility] Jasmin Hodgson D.O. [address] [place] [phone] Screening Mammogram Breast Cancer Social History Tobacco Use Types Packs/Day Years [...] week 12/07/2021 How often do you attend [facility] or alevism services? Patient declined 12/07/2021 Do you belong to any clubs o r organizations such as mormon groups, unions, fraternal or athletic groups, or [...] Answer Date Recorded PHQ-2 Score 0 07/28/2023 [facility] Occupat ional Health - Occupational Stress [...] your living situation today? I have a [facility] place to live 01/19/2023 Education Answer Date Recorded What is the highest level of school you have completed or the highest degree you have received? 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 [address] [place] [address] Discharge Disposition: Home or Self Care Scheduled Orders Name Type Priority Associated Diagnoses Order Schedule BI Breast Screening Bilateral with Tomosynthesis Imaging RAD - Routine (most inpatients and all outpatients) Screening Mammogram Breast Cancer Expected: 12/30/2023, Expires: 05/28/2024 documented as of this encounter Goals Goal Patient Goal Type Associated Problems Recent Progress Patient-Stated? Author Eat a balanced, healthy diet Diet No Tiffanie Jarvis RLexaN. Note: Continue eating a balanced, healthy diet 30 minutes 3x a week Exercise No Tiffanie Jarvis, R.N. Increase physical activity Exercise No Tiffanie Jarvis, R.N. Improve balance, strength, and endurance Exercise No Tiffanie Jarvis, R.N. Note: Improve strength in ankles documented as of this encounter Visit Diagnoses Diagnosis Screening Mammogram Breast Cancer documented in this encounter Additional Health Concerns Assessment Noted Time PHQ-9 Depression Total Score: 3 10/16/19 20 1:30 PM CDT documented as of this encounter Care Teams Rn Occupational Health Relationship Specialty Start Date End Date Jasmin Hodgson D.O. [address] [place] [address] PCP - General Internal Medicine 06/03/21 documented as of this encounter
--- OUTSIDE RECORDS SUMMARY | 2024-01-18 09:49 | XMS_ITS | Encounter Summary ---
Author Organization [facility] Address [address] [place] [address] Care Team Providers Care Shooting Gallery Operator Name Role Phone Jasmin Hodgson DFranci Primary Care Provide r Encounter Details Date Type Department Care Team (Late st Contact Info) Description 11/19/2023 Clinical Communication Department of Internal Medicine in [place], [place] [address] [phone] Jasmin Hodgson DLexaO. [address] [address] Social History Tobacco Use Types Packs/Day Years [...] week 12/07/2021 How often do you attend [facility] or adventist services? Patient declined 12/07/2021 Do you belong to any clubs o r organizations such as alevism groups, unions, fraternal or athletic groups, or [...] Answer Date Recorded PHQ-2 Score 0 07/28/2023 [facility] of Occupat ional Health - Occupational Stress [...] your living situation today? I have a [facility] place to live 01/19/2023 Education Answer Date Recorded What is the highest level of school you have completed or the highest degree you have received? 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 documented in this encounter Plan of Treatment Upcoming Encounters Date Type Department Care Team (Late st Contact Info) Description 01/26/2024 10:30 AM CDT Appointment Department of Radiology in [place] [address] [place] [address] Jasmin Hodgson D.O. [address], [place] [address] Discharge Disposition: Home or Self Care documented as of this encounter Goals Goal Patient Goal Type Associated Problems Recent Progress Patient-Stated? Author Eat a balanced, healthy diet Diet No Tiffanie Jarvis R.NLexa Note: Continue eating a balanced, healthy diet 30 minutes 3x a week Exercise No Tiffanie Jarvis RLexaN. Increase physical activity Exercise No Tiffanie Jarvis RLexaN. Improve balance, strength, and endurance Exercise No Tiffanie Jarvis R.N. Note: Improve strength in ankles documented as of this encounter Visit Diagnoses Not on filedocumented in this encounter Additional Health Concerns Assessment Noted Time PHQ-9 Depression Total Score: 3 10/16/19 20 1:30 PM CDT documented as of this encounter Care Teams Shooting Gallery Operator Relationship Specialty Start Date End Date Jasmin Hodgson D.O. [address], [place] [address] PCP - General Internal Medicine 06/03/21 documented as of this encounter
--- OUTSIDE RECORDS SUMMARY | 2024-01-18 09:49 | XMS_ITS | Clinical Summary ---
Author Organization [facility] Address [address] [place] [address] Care Team Providers Care Water Resource Project Manager Name Role Phone Jasmin Hodgson D.O. Primary Care Provide r Source Comments Patient records contain information from all sites at [facility]. For routine questions regarding patient records, call [phone] during business hours, M-F 8:00 AM - 5:00 PM Central Time. Record requests for emergency care only can be directed to [phone] at any time.[facility] Allergies Active Allergy Reactions Criticality Noted Date [...] the original. 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 In consultation with the [employer] shoes, she tried a 3/4 inch right [...] 1:47 PM CDT): She checked in with [employer] who can provide heel lift/insert. --referral to [facility] for [facility]otics --referral to [facility] Chiropractic if measurements for leg length difference [...] 09/2011, Dr. Gomes 07/2019. Normal coronaries on [facility] 01/2011 (after abnormal NST; no endothelial function studies performed); Mild CAD 08/2005. Intolerant to isosorbide mononitrate??(severe headache). She is seen by Dr. Noriega at [facility] and is now enrolled in a cardiac [...] 1976 (fibromuscular dysplasia?). 1976, Dr. Powell at [facility] for malignant hypertension. Assessment & Plan (11/01/2019 2:44 PM CDT): Her blood pressure is normal. Renal artery stenosis has improved since having surgery 20 years ago. Resolved Problems Problem Noted Date Diagnosed Date Resolved Date Infection Upper Respiratory 05/25/2023 05/25/2023 COVID-19 Infection 11/23/2020 1 Pressure Head 07/16/2020 03/20/2021 Overview (07/16/2020): When [...] Plan: She had recently been in the [facility] and was at an elevation of over [...] for years. She had recent workup with [facility] which yielded negative results for any blockage or pulmonary issues. She is requesting a referral to [facility]. She feels that something is wrong [...] CDT): She had recently been in the [facility] and was at an elevation of over [...] for years. She had recent workup with [facility] which yielded negative results for any blockage or pulmonary issues. She is requesting a referral to [facility]. She feels that something is wrong [...] Overview (08/30/2017): Right History Of Falling 08/30/2017 Release Carpal Tunnel Status Post 06/12/2017 06/10/2020 [...] 06/30/2008 06/10/2020 Gastroesophageal Reflux Disease 06/25/2008 06/10/2020 Encounters Date Type Department Care Team Description 12/04/2023 Refill Department of Internal Medicine in [place], [place] [address] [address] Jasmin Perry D.Luiz. Med Refill 11/30/2023 Orders Only [facility] e[facility] D.O. Screening Mammogram Breast Cancer 11/19/2023 11:30 AM CDT Office Visit Department of Obstetrics and Gynecology in [place], [place] [address] [address] Leni Ballard M.D. Lichen Sclerosus Discharge Disposition: Home or Self Care 11/19/2023 Clinical Communication Department of Internal Medicine in [place], [place] [address] [place] [address] Jasmin Perry D.O. from Last 3 Months Immunizations Name Administration Dates Next Due DTaP (Infanrix, Tripedia) 03/27/2009 Influenza high dose QV(65 ye ars or older) (PF) 01/23/2020 Influenza, Unspecified 01/28/2016,2014,11/20/2013,2012,02/08/2012,12/29/2010,02/10/2010,1 05/05/2008,01/23/2008,02/10/2007, 006,02/18/2004 PCV20 07/08/2023(Deferred: Patient dec nanci) PPD Test 10/10/2018 RZV (SHINGRIX) 07/08/2023(Deferred: Patient dec nanci) SARS-COV-2 (COVID-19) - MODE RNA BIVALENT(Discontinued) 07/08/2023(Deferred: Patient decision) Tdap 07/08/2023(Deferred: Patient decision),03/27/2009 influenza trivalent high dos e (HD)(PF) 03/27/2019,01/16/2018,04/10/2017 influenza trivalent vaccine (6 months and older)(PF) 07/08/2023(Deferred: Patient decision) Family History Medical History Relation Name Comments Coronary artery disease Brother 1 Rigo Diabetes Brother 1 Rigo Hypertension Brother 1 Rigo Stroke Brother 1 Rigo Alcohol abuse Brother 2 gabriella stubbsman Anxiety disorder Brother 2 gabriella stubbsman Coronary artery disease Brother 2 gabriella stubbsman Depression Brother 2 gabriella stubbsman Diabetes Brother 2 gabriella austin Hypertension Brother 2 gabriella stubbsman Alcohol abuse Brother 3 bridgette stubbsman Anxiety disorder Brother 3 bridgette austin Diabetes Brother 3 bridgette stubbsman Lung cancer Brother 4 abel austin No Known Problems Daughter 1 Eczema Daughter 2 Alcohol abuse Father CLL - Chronic lymphocytic leukemia Father Anxiety disorder Mother Depression Mother Hyperthyroidism Mother Osteoporosis Mother Parkinsonism Mother Parkinsons disease Mother Psychiatric Mother Thyroid disease Mother Coronary artery disease Sister 1 samantha Heart attack Sister 1 samantha Hypertension Sister 1 samantha Kidney disease Sister 1 samantha Multiple myeloma Sister 1 samantha Pacemaker catherter, device Sister 1 samantha Rheum arthritis Sister 1 samantha Urolithiasis Sister 1 samantha Coronary artery disease Sister 2 mray kale Diabetes Sister 2 mary kale Hypertension Sister 2 mary kale Kidney disease Sister 2 mary kale Rheum arthritis Sister 2 mary kale Coronary artery disease Sister 3 misty osullivan Diabetes Sister 3 misty shi Hypertension Sister 3 misty osullivan Anesthesia problems Neg Hx Bleeding Disorder Neg Hx DVT - Deep vein thrombosis Neg Hx PE - Pulmonary embolism Neg Hx Relation Name Status Comments Brother 1 Rigo Brother 2 gabriella austin Brother 3 bridgette austin Brother 4 abel austin Daughter 1 Alive Daughter 2 Alive Father Mother Sister 1 samantha Alive Sister 2 mary banks Alive Sister 3 misty osullivan Alive Social History Tobacco Use Types Packs/Day Years [...] week 12/07/2021 How often do you attend [facility] or jew services? Patient declined 12/07/2021 Do you belong to any clubs o r organizations such as pentecostal groups, unions, fraternal or athletic groups, or [...] Answer Date Recorded PHQ-2 Score 0 07/28/2023 [facility] of Occupat ional Health - Occupational [...] your living situation today? I have a [facility] place to live 01/19/2023 Education Answer Date Recorded What is the highest level of school you have completed or the highest degree you have received? 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 [address] [address] Discharge Disposition: Home or Self Care Health Maintenance Due Date Last Done Comments CT Colonography 1951 Pneumococcal vaccine (65+ ye ars) (1 of 2 - PCV) 1957 Zoster Vaccines (1 of 2) 2001 DTaP,Tdap,and Td Vaccines (3 - Td or Tdap) 03/27/2019 03/27/2009, 03/27/2009 Colonoscopy 08/30/2023 08/29/2018, 05/2018 (Performed elsewhere), 12/12/2013 COVID-19 Vaccine ( - 2023-2 5 season) 2023 Mammogram 12/19/2023 12/18/2022, 04/29, 02/12/2020, Additional history exists Influenza Vaccine (#1) 2023 0, 03/27/2019, 01/16/2018, Additional history exists Visit: Medicare Annual Wellness 01/24/2024 3 Fasting Glucose for Diabetes Screening 07/27/2024 07/28/2023, 07/28/2023, 02/20/2023, Additional history exists Visit: Chronic Disease, age 18+ 09/01/2024 4 Office Visit for Blood Press ure Check / Re-check 11/18/2024 11/19/2023 Cologuard 08/23/2026 08/24/2023 Colorectal Cancer Surveillance 08/23/2026 Lipid (Cholesterol) Screening 07/27/2028, 07/06/2022, 07/08/2020, Additional history exists Hepatitis C Screening Completed 05/14/2016 Lung Cancer Screening Discontinued 04/01/2021 , 04/01/2021, 04/01/2021, Additional history exists Depression Screening (Annual PHQ-2) Completed 07/28/2023, 07/28/2023 Fall Risk Screen (Annual) Completed 07/28/2023 Goals Goal Patient Goal Type Associated Problems Recent Progress Patient-Stated? Author Shawn nelson balanced, healthy diet Diet No Tiffanie Jarvis [...] inpatients and all outpatients) 04/01/2021 10:33 AM [facility] Other Nonspecific Abnormal Finding Of Lung Field HCV AB SCRN W/REFLEX TO HCV PCR, S Routine 05/14/2016 8:10 AM [facility] from Last 3 Months or Most Recently [...] screened with both Cologuard and colonoscopy. (Alem Stone, N Engl J Med 2014;370(14):7457-0333) The normal value (reference range) for this assay is negative. COLOGUARD RE-SCREENING RECOMMENDATION: Periodic colorectal cancer screening is an important part of preventive healthcare for asymptomatic individuals at average risk for colorectal cancer. ??Following a negative Cologuard result, the [place] Cancer Society and U.S. Multi-Society Task Force screening guidelines recommend a Cologuard re-screening interval of 3 years. References: [place] Cancer Society Guideline for Colorectal Cancer Screening: https://www.cancer.org/cancer/aixvk-axingz-qndoul/detection- diagnosis-staging/acs-recommendations.html.; Anibal DK, Rupinder PATRICK, Jacqueline GipsonK, Colorectal Cancer Screening: Recommendations for Physicians and Patients from the U.S. Multi-Society Task Force on Colorectal Cancer Screening , Am J Gastroenterology 2017; 112:7184-4429. TEST DESCRIPTION: Composite algorithmic analysis of stool [...] were screened with both Cologuard and colonoscopy. (Imperiale T. et al, N Engl J Med 2014;370(14):6453-8581.) Cologuard may produce a false negative or false positive result (no colorectal cancer or precancerous polyp present at colonoscopy follow up). A negative Cologuard test result does not guarantee the absence of CRC or advanced adenoma (pre-cancer). The current Cologuard screening interval is every 3 years. ([place] Cancer Society and U.S. Multi-Society Task Force). Cologuard performance data in a 10,000 patient pivotal study using colonoscopy as the reference method can be accessed at the following location: www.[employer]/results. Additional description of the Cologuard test process, warnings and precautions can be found at www.Tip or SkipogUnbabelrd.[employer]. Stool (Stool) 08/24/2023 8:1 0 AM CDT 08/25/2023 10:18 AM CDT Jasmin Hodgson D.O. LAB BODY FLUIDS AND S TOOLS ORDERABLES Final Result [employer] [address] [place] [address] [employer] [address] [facility], [address] [place] [id number] * Lipid Panel (07/28/2023 1:04 PM CDT) [...] 1:04 PM CDT 07/28/2023 1:10 PM CDT Jasmin Hodgson D.O. LAB BLOOD ADD-ON Makenna l Result Performing Organization Address [facility] Co de Phone Number [facility] [address] [place] [address], [facility] [place] [address] [place] [address] * (ABNORMAL) Hemoglobin A1c (07/28/2023 1:04 PM CDT) Hemoglobin A1c, B 5.8(H) 4.2 - 5.6 % 07/28/2023 2:23 PM CDT OWAT Comment: Hemoglobin A1c values of 5.7-6.4 percent indicate an increased risk for developing diabetes mellitus. In diabetic patients, HbA1c goals should be discussed with healthcare provider. Blood (Blood, Venous) 07/28/2023 1:04 PM CDT 07/28/2023 1:10 PM CDT Jasmin Patrick.OLexa LAB BLOOD ADD-ON Makenna l Result [facility] [address] [place] [address], [facility] [place] [address] [place] [address] * BI Breast Screening Bilateral with Tomosynthesis [...] Annual Screening Mammogram ASSESSMENT: BI-RADS: 1: Negative. us Jasmin AVERYG BI PROCEDURES Fin al Result * CT Chest without IV Contrast (04/01/2021 10:33 AM [facility]) Anatomical Region Laterality Modality Chest, Thoracic RST LOS, Tho racic ARZ LOS, Thoracic FLA LOS N/A Computed Tomography 04/01/2021 11:4 7 AM [facility] Impressions 04/01/2021 11:50 AM [facility] Stable sub-4 mm pulmonary nodules compared to 09/25/2019. No new or enlarging pulmonary nodules. Consider additional follow-up CT in 12-18 months. Narrative 04/01/2021 11:50 AM [facility] EXAM: CT CHEST WITHOUT IV CONTRAST 3D/MIPS: [...] in 12-18 months. Nga Yip M.D., M.P.H. [facility] CT PROCEDURES Final Result * HCV Ab w/Reflex to HCV PCR, S (medicare) (05/14/2016 8:10 AM [facility]) HXHCV Ab [facility] Negative Negative POWERCHART Comment: Eaokjg-qd-rezcpw ratio is <1.00. Test Performed by: [address], [place] [address] Sole Sewer Hand: Kvng Ayers II, M.D., Ph.D. Blood 05/14/2016 8:10 AM [facility] Branden Woods M.D. LAB MICROBIOLOGY - BLOOD ORDERAB LES Final Result POWERCHART from Last 3 Months or Most Recently Relevant to Health Maintenance Insurance [facility] Advance Directives For more information, please contact: [phone] Documents on File Type Date Recorded Patient Talent Acquisition Specialist Expl anation Advance Directives 12/13/2018 2:15 PM POA for healthcare Healthcare Agents on File Name Relationship Healthcare Agent Relationshi p Communication Nuria Kirkland Daughter Health Care Agent Jazmine Salmon Daughter First Alternate Health Car e Agent Care Teams Water Resource Project Manager Relationship Specialty Start Date End Date Jasmin Hodgson D.O. [address] [place] [address] PCP - General Internal Medicine 06/03/21
--- OUTSIDE RECORDS SUMMARY | 2024-01-18 09:49 | XMS_ITS | Continuity of Care Document ---
Author Organization [facility] Address [address] [place] [address] Phone Care Team Providers Care Certified Pest Control Technician Name Role Phone Hitesh DAVIS, PhD, Lupillo Unavailable Unavai lable Allergies, Adverse Reactions, Alerts Substance Reaction Status Criticality Penicillins Itching of eye Active No Informatio n Medications Medication Instructions Dosage Effective Dates (start - stop) Status Comments ARMONAIR DIGIHALER (unknown strength) Not Available - Active CO Q-10 (unknown strength) Not Available - Active ROSUVASTATIN CALCIUM (unknown strength) Not Available - Active ASPIRIN (unknown strength) Not Available - Active CLOBETASOL PROPIONATE (unknown strength) Not Available - Active WEGOVY (unknown strength) Not Available - Active Procedures Procedure Date Office/Outpatient Visit,[facility] 2023 Advance Directives Directive Yes / No Effective Date File Name No Information Encounters Encounter Description Practice Location Reason(s) For Visit Diagnoses Date Provider Providers Copied on Encounter Office/Outpat ient Visit,[facility], [facility], [address], [place], [place], [id number], [place] tel:[phone] [facility] [place] Spinal stenosis, lumbar region with neurogenic claudication Hitesh Wesley. [facility], [address], [place], [address], [place]. tel:[phone] Referring Provider: Jasmin Fragoso, [facility] [address] [place], [address]. tel:[phone] Family History Family Member Type Diagnosis Age At Onset Brother Problem (finding) Cancer, unknown type Mother Problem (finding) Ankylosing spondylitis Sister Problem (finding) Cancer, unknown type Mother Problem (finding) Scoliosis Sister Problem (finding) Cardiovascular disease Brother Problem (finding) Cardiovascular disease Payers Payer name Insurance type Covered republican ID Tracy white(s) are Medicare [facility] 2021 [id number] Social History Type Description Quantity Date Captured Comments Alcohol Use Details Caffeine Use Details Unknown Tobacco Use Status No Information Smoking Status Former smoker Smoking Tobacco Use Details Cigarette: Age Started: 19, Age Stopped: 61, Years Used 43 Cigarette: No Details Available Sex Female Vital Signs Date / Time: Height Weight BMI Pulse Rate Blood Pressure Temperature Respiratory Rate Body Surface Area Head Circumference Head Circ. Percentile Wt./Beni. Percentile BMI percentile Pulse Ox Inhaled Ox 1:14 PM 60.00 in 68.039 kg (150.00 lbs) 29.2 9 kg/m eter (2) Chief Complaint And Reason For Visit No Information Reason For Referral Reason For Referral No Information History Of Present Illness Encounter Date Complaint History Of Prese nt Illness No Information Functional Status Date Functional Assessmen t No Information Instructions Date Instruction Additional Infor mation No Information Assessments Type Assessment Date No Information Patient Care Teams Name Effective Dates (start - stop) Status Members No Information
--- OUTSIDE RECORDS SUMMARY | 2024-01-18 09:49 | XMS_ITS | Encounter Summary ---
Author Organization [facility] Address [address] [place] [address] Care Team Providers Care Director Card Name Role Phone Jasmin Hodgson D.O. Primary Care Provide r Reason for Referral * Outpatient (Routine) - Authorized Specialty Diagnoses / Procedures Referred By Contac t Referred To Contact Diagnoses Pain Low Back Chronic Procedures DX Lumbar Spine 2-3 Views Chirag Wilson M.D. [address] [place] [address] Phone: tel: fax: [facility] Referral ID Status Reason Start Date Expiration Date V isits Requested Visits Authorized [id number] Authorized 09/28/2023 09/27/2024 1 1 * Outpatient (Routine) - Authorized Specialty Diagnoses / Procedures Referred By Contac t Referred To Contact Sports Medicine Chirag Wilson M.D. [address] [place] [address] Phone: tel: fax: [facility] Referral ID Status Reason Start Date Expiration Date V isits Requested Visits Authorized [id number] Authorized 09/28/2023 03/29/2025 1 1 Reason for Visit * Reason Onset Date Comments Appt Request 09/28/2023 Encounter Details Date Type Department Care Team (Late st Contact Info) Description 09/28/2023 Clinical Communication Department of Sports Medicine in [place], [place] [address] [place] [address] Miller Wilson M.D. [address], [facility] [address] [place] [id number] Appt Request Social History Tobacco Use Types Packs/Day Years Used Date Smoking Tobacco: Former Cigarettes 1.5 43 1 96 - 2004 Passive Smoke Exposure: Past Smokeless Tobacco: Never [...] often do you attend [facility] or shinto services? Patient declined 12/07/2021 Do you belong to any clubs o r organizations such as holiness groups, unions, fraternal or athletic groups, or [...] Answer Date Recorded PHQ-2 Score 0 07/28/2023 [facility] - Occupational Stress Questionnaire Answer Date Recorded [...] your living situation today? I have a [facility] place to live 01/19/2023 Education Answer Date Recorded What is the highest level of school you have completed or the highest degree you have received? 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 Chirag Wilson Side: Bilateral; left is worse versus right Body Part/Region: Low Back Reason for call: Other: Appointment Action: Message routed to [facility] Athletic Trainers at [facility] Patient called requesting an appointment with Dr. Wilson. Patient has been having low back muscle spasms, left leg weakness when stepping up on it, constant pain which aches. Patient goes to chiropractor and stretches out the SI joint 2-3 times a week. In the groin area there is aches and pain. It feels that patient has a rubber band that is pulling. Patient's pain scale is 5 out of 10. Patient took a road trip for two weeks and was doing yard work and it seemed to irritate the low back. Patientcompleted a MRI of 09/24/2023 and it is available in [facility] Read[facility]. Patient is also wanting to let Dr. Wilson know that she has started taking Wegovy weight loss medication in July. Patient stated that she has loss 10 pounds. Patient is requesting an appointment with Dr. Wilson. Please review/advise if it isappropriate to make a return appointment. Thank you, documented in this encounter Plan of Treatment Upcoming Encounters Date Type Department Care Team (Late st Contact Info) Description 01/26/2024 10:30 AM CDT Appointment Department of Radiology in [address] [address] Jasmin Hodgson D.O. [address] [address] Discharge Disposition: Home or Self Care Scheduled Orders Name Type Priority Associated Diagnoses Orde r Schedule DX Lumbar Spine 2-3 Views Imaging RAD - Routine (most inpatients and all outpatients) Pain Low Back Chronic Expected: 09/28/2023 (Approximate), Expires: 09/27/2024 Scheduled Referrals Name Type Priority Associated Diagnoses Orde r Schedule Sports Medicine office visit (clinic) Outpatient Referral Routine Expected: 09/28/2023 (Approximate), Expires: 12/28/2024 documented as of this encounter Goals Goal [...] as of this encounter Visit Diagnoses Diagnosis Pain Low Back Chronic- Primary documented in this encounter Additional Health Concerns Assessment Noted Time PHQ-9 Depression Total Score: 3 10/16/19 20 1:30 PM CDT documented as of this encounter Care Teams Director Card Relationship Specialty Start Date End Date Jasmin Hodgson D.O. [address] [place] [address] PCP - General Internal Medicine 06/03/21 documented as of this encounter
--- OUTSIDE RECORDS SUMMARY | 2024-01-18 09:50 | XMS_ITS | Clinical Summary ---
Author Organization [employer] [facility] Address [place], [place] [address] Care Team Providers Care Analytical Data Miner Name Role Phone Jasmin Hodgson DO Primary Care Provider Allergies Active Allergy Reactions Criticality Noted Date Comments Albuterol Sulfate *Unknown 07/18/2018 Palpitations Citalopram GI Upset 01/11/2017 Isosorbide Mononitrate Headache High 05/31/2018 Severe headache Atorvastatin Myalgia 05/22/2006 Oyster Extract Vomiting 03/23/2016 Other reaction(s): GI intolerance Oyster Soup Oyster Soup Penicillins Itching 05/22/2006 Medications Medication Sig Dispensed Refills Start Date End Date Status coenzyme q10 (CO Q-10) 100 mg cap Take 100 mg by mouth once daily. 2-3xs/week Active aspirin (ECOTRIN) 81 mg enteric coated tabletIndications:m yocardial infarction prevention Take 81 mg by mouth once daily with a meal. Indications: Myocardial Infarction Prevention Active clobetasol 0.05% (TEMOVATE 0.05% OINTMENT) 0.05 % ointment Apply topically to affected area(s). Active albuterol HFA (PRO-AIR; VENTOLIN; PROVENTIL) 90 mcg/actuation inhalerIndications: Bronchitis Inhale 1-2 Puffs by mouth every 4 hours if needed (Cough). 1 Each 07/11/2022 Active polyethylene glycoL (MIRALAX) 17 gram/scoop powderIndications:C onstipation, unspecified constipation type Mix 1 scoop (17 g) in liquid then take by mouth once daily. 289 g 02/20/2023 Active Wegovy 0.5 mg/0.5 mL subcutaneous pen Inject 0.5 mg subcutaneous once weekly. Active fluticasone (50 mcg per actuation) nasal solution (FLONASE) Inhale 2 Sprays in both nostrils once daily if needed. Active diltiazem CR (TIAZAC; TAZTIA XT) 360 mg capsuleIndications: Palpitations Take 1 Capsule (360 mg) by mouth once daily. 90 Capsule 3 01/07/2024 Active nitroglycerin (NITROSTAT) 0.4 mg sublingual tabletIndications:a ngina Place 1 Tablet (0.4 mg) under the tongue every 5 minutes if needed for Chest Pain. 25 Tablet 1 01/07/2024 Active rosuvastatin (CRESTOR) 20 mg tabletIndications:H yperlipidemia, unspecified hyperlipidemia type Take 1 Tablet (20 mg) by mouth at bedtime. 90 Tablet 3 01/07/2024 Active calcium carbonate-vitamin D3, 600 mg-400 unit, (CALCIUM 600 + D) 600 mg(1,500mg) -400 unit tabletIndications:p ost-menopausal osteoporosis prevention Take 1 tablet by mouth once daily with a meal. Indications: Post-Menopausal Osteoporosis Prevention 01/07/20 Discontinu ed(*Patien t states no longer taking) nitroglycerin (NITROSTAT) 0.4 mg sublingual tabletIndications:a ngina Place 1 tablet under the tongue every 5 minutes if needed for Chest Pain. Indications: angina, a type of chest pain 25 tablet 1 01/27/2020 01/07/20 Discontinu ed(Reorder (E-cancel not sent)) Simethicone 125 mg capsuleIndications: Abdominal gas pain Take 1 Capsule (125 mg) by mouth 4 times daily if needed for Flatulence. Max dose: 500 mg per 24 hrs 30 Capsule 02/20/2023 01/07/20 Discontinu ed(*Patien t states no longer taking) diltiazem CR (TIAZAC; TAZTIA XT) 360 mg capsuleIndications: Palpitations Take 1 Capsule (360 mg) by mouth once daily. 90 Capsule 10/21/2023 01/07/20 Discontinu ed(Reorder (E-cancel not sent)) rosuvastatin (CRESTOR) 20 mg tabletIndications:H yperlipidemia, unspecified hyperlipidemia type Take 1 Tablet (20 mg) by mouth at bedtime. 90 Tablet 3 11/24/2023 01/07/20 24 Discontinu ed(Reorder (E-cancel not sent)) Active Problems Problem Noted Date Diagnosed Date Hypertension 07/16/2020 Overview (11/10/2020): S/p renal artery stent 1976 (fibromuscular dysplasia?). Last Assessment & Plan: Repeat renal u/s w dopplers as planned by Dr. Noriega. Adrenal adenoma, left 01/17/2020 Overview (01/17/2020): 2 cm (noted on CT in 08/2019) Lung nodules 01/17/2020 Overview (01/17/2020): noted on CT in August 2019 (3 and 4 mm). repeat in 1 year. Acute exacerbation of chronic obstructive pulmon antonio disease 11/01/2019 Overview (01/17/2020): Chronic obstructive pulmonary disease Last Assessment & Plan: Chronic obstructive pulmonary disease is definitely playing into the etiology of the shortness of breath. Paroxysmal tachycardia 11/01/2019 Overview (01/17/2020): Paroxysmal tachycardia with low oxygen saturations Last Assessment & Plan: She had recently been in the [facility] and was at an elevation of [...] for years. She had recent workup with [facility] which yielded negative results for any [...] ER if she should have further symptoms. History of colonic polyps 05/31/2018 Chronic low back pain 12/05/2017 Hypercalcemia 12/05/2017 Impaired fasting glucose 06/12/2017 Osteopenia 06/12/2017 Other specified postprocedural states 06/12/2017 Osteoporosis 06/12/2017 Overview (11/10/2020): 04/25/2020 right distal lateral malleolus fracture after falling off of a high chair due to falling asleep. DEXA 2019 Osteopenia. Last Assessment & Plan: --repeat DEXA --repeat VitD, Calcium, PTH, and protein levels (elevated at [facility]) Anxiety 12/25/2016 Carpal tunnel syndrome of left wrist 11/17/2016 Hemorrhoids 05/18/2016 High alkaline phosphatase 05/18/2016 Lichen sclerosus 05/18/2016 Overview (01/17/2020): She saw Dr. Ballard, Mold Repair Technician. Personal history of nicotine dependence 05/18/19 17 Prolapse of vaginal vault after hysterectomy Scoliosis 05/18/2016 Carpal tunnel syndrome of right wrist 03/22/2016 Arteriosclerosis of coronary artery 04/23/2015 Overview (01/17/2020): Overview: Coronary artery disease (CAD) Eczema 08/24/2013 Hyperlipidemia 03/09/2011 Pain, knee 12/29/2010 Degeneration of intervertebral disc of cervical region 08/28/2010 Anisocoria 12/16/2009 Overview (01/17/2020): Right pupil larger than Left pupil SARAH (renal artery stenosis) 06/30/2008 DJD (degenerative joint disease) 06/30/2008 GERD (gastroesophageal reflux disease) 9 Colonic polyps 06/25/2008 Encounters Date Type Department Care Team Description 01/16/2024 Travel 01/07/2024 3:00 PM CDT Office Visit [facility] [place] [address] [place] [address] Samantha Noriega MD Follow Up (ANNUAL F/U. Reschedule from 12/05 Jeniffer Darling.//Pt states she has been doing well since her last OV. ) 01/07/2024 Travel 01/04/2024 Travel 12/29/2023 Transcribe Orders [facility] [address] [place] [address] Yehuda Monzon MD 12/28/2023 Orders Only [facility] Scanner 1 scan: (1-Ord) TC SPINE, EPIDURAL STEROID- LUMBAR/SARAL INTERLAMINAR, 12/28/2023 11/24/2023 Refill [facility] [place] [address] [place] [address] Samantha Noriega MD Refill Request (rosuvastatin) 10/21/2023 Telephone [facility] [address] [place] [address] Samantha Noriega MD Refill Request from Last 3 Months Immunizations Name Administration Dates Next Due DTaP 03/27/2009 Influenza Virus, Unspecified 01/28/2016, 12/12/2014,11/20/2013,12/18/2012 ,02/08/2012,12/29/2010,02/10/2010, 9,01/23/2008,02/10/2007,02/06/2006,02/18/20 04 Influenza, High-dose Inactivated 03/27/2019,12/28,04/10/2017,01/26/2016 Influenza, IIV3 (Age >=3 years) 02/10/2007 Influenza, IIV4 (=>6mos) MDV 01/23/2020 Tdap 03/27/2009 Tuberculin (PPD) 10/10/2018 Family History Medical History Relation Name Comments Cancer-breast No Family History Social History Tobacco Use Types Packs/Day Years Used Date Smoking Tobacco: Former Cigarettes 2 20 0 03/29/1983 - 03/29/2003 Smokeless Tobacco: Never Tobacco Cessation:Counseling Given: Yes Alcohol Use Standard Drinks/Week Comments Yes 1 (1 standard drink = 0.6 oz pur e alcohol) PHQ-2 Answer Date Recorded PHQ-2 TOTAL SCORE 0 01/20/2021 Social Connections Answer Date Recorded Frequency of Communication with Friends and Fami ly 0 07/11/2022 Financial Resource Strain Answer Date R ecorded Difficulty of Paying Living Expenses 3 07/11/2022 Difficulty of Paying Living Expenses Not on file 07/11/2022 Food Insecurity Answer Date Recorded Worried About Running Out of Food in the Last Ye ar 1 07/11/2022 Transportation Needs Answer Date Record ed Lack of Transportation (Medical) 1 07/11/2022 Housing Stability Answer Date Recorded Unable to Pay for Housing in the Last Year 1 07/11/2022 Sex and Gender Information Value Date Recorded Sex Assigned at Not on file Gender Identity Not on file Sexual Orientation Not on file Travel History Travel Start Travel End [place] 12/08/2023 12/19/2023 Obstetrics History Last Filed Vital Signs Vital Sign Reading Time Taken Comments Blood Pressure 130/66 01/07/2024 2:51 PM CDT Pulse 80 01/07/2024 2:51 PM CDT Temperature 36.3 ??C (97.3 ??F) 02/20/2023 9:17 AM CS T Respiratory Rate 18 02/20/2023 9:17 AM GAUGE AND WEIGH MACHINE ADJUSTER Oxygen Saturation 95% 01/07/2024 2:51 PM CDT Inhaled Oxygen Concentration - - Weight 68.9 kg (152 lb) 01/07/2024 2:51 PM CDT Height 152.4 cm (5') 01/07/2024 2:51 PM CDT Body Mass Index 29.69 01/07/2024 2:51 PM CDT Plan of Treatment Upcoming Encounters Date Type Department Care Team (Late st Contact Info) Description 01/18/2024 10:40 AM CDT Office Visit [facility] [address] [place] [address] Yehuda Monzon MD [address] [place] [address] Arrived Health Maintenance Due Date Last Done Comments Pneumococcal series for age 65+ (1 of 2 - PCV) 1957 Zoster (shingles) series for age 50+ (1 of 2) 2001 Medicare Wellness for age 65+ 2016 Tetanus booster 03/27/2019 03/27/2009 Mammogram for age 45-75 02/11/2021 02/12/20 20, 11/26/2011, 07/23/2010, Additional history exists Depression screening for age 12+ 01/23/2022 01/23/2021, 01/20/2021, 01/17/2020 COVID-19 vaccine series ( season) 2023 Influenza for age 65+ 11/28/2023 01/23/2020 , 03/27/2019, 01/16/2018, Additional history exists BMI (ht and wt on same day) for age 18+ 01/06/2025 01/07/2024, 07/06/2022, 12/09/2020, Additional history exists Lipids for age 45-75 07/07/2027 07/06/2022, 05/31/2018 (Verified in Care Everywhere or Patient Record), 06/25/2008 Colonoscopy through age 75 08/29/202808/29, 12/12/2013, 08/07/2008 Tdap Completed 03/27/2009 Hepatitis C screening for age 18-79 Addressed 05/14/2016 (Verified in Care Everywhere or Patient Record) Overridden with the intention of not completing the topic DEXA/DXA scan for age 65+ Addressed 2018 (Verified in Care Everywhere or Patient Record) Overridden with the intention of not completing the topic Procedures Procedure Name Priority Date/Time Associated Diagnosis Comments AMB EPIDURAL STEROID INJECTION Routine 01/18/2024 8:01 AM CDT Lumbar stenosis with neurogenic claudication SCAN-OPERATIVE/PROC EDURE REPORT 12/28/2023 12:00 AM CDT LC LIPID PANEL Routine 07/06/2022 2:13 PM CDT Hyperlipidemia, unspecified hyperlipidemia type XR MAMMO BILAT SCREENING Routine 02/12/2020 1:25 PM GAUGE AND WEIGH MACHINE ADJUSTER Visit for screening mammogram COLONOSCOPY 08/29/2018 7:57 AM CDT from Last 3 Months or Most Recently Relevant to Health Maintenance Results * SCAN-OPERATIVE/PROCEDURE REPORT (12/28/2023 12:00 AM CDT) Scanner OTHER * (ABNORMAL) LC LIPID PANEL (07/06/2022 2:13 PM CDT) Cholesterol, Total 141 100 - 199 mg/dL 07/08/2022 10:10 AM CDT [facility] Triglycerides 218(H) 0 - 149 mg/dL 07/08/2022 10:10 AM CDT [facility] HDL Cholesterol 60 >39 mg/dL 3 10:10 AM CDT [facility] VLDL Cholesterol Mike 34 5 - 40 mg/dL 07/08/2022 10:10 AM T [facility] LDL Chol Calc (NIH) 47 0 - 99 mg/dL 07/08/2022 10:10 AM T [facility] Blood BLOOD SPECIMEN / Unknown Venipuncture / Unknown 07/06/2022 2:13 PM CDT 07/06/2022 2:14 PM CDT Narrative [facility] - 07/08/2022 10:10 AM CDT Performed at: [address] [place], [place] [id number] Manager Facility: Dereck Merino MD, Phone: ??[phone] Samantha Noriega MD [facility] [address] [place] [address], [place] * XR MAMMO BILAT SCREENING (02/12/2020 1:25 PM GAUGE AND WEIGH MACHINE ADJUSTER) Anatomical Region Laterality Modality BREASTS, Breast Left, Breast Right Bilateral Mammography Impressions 02/13/2020 6:48 AM GAUGE AND WEIGH MACHINE ADJUSTER ??There is no radiographic evidence for malignancy. ??Recommend annual mammograms. A lay language report of this examination will be provided to the patient. MAMMOGRAM ASSESSMENT: ??ACR 1 Negative Narrative 02/13/2020 6:48 AM GAUGE AND WEIGH MACHINE ADJUSTER XR MAMMO BILAT SCREENING [[id number]] CLINICAL HISTORY: ??This is an asymptomatic 69 y.o. patient. INDICATION FOR EXAM: Mammogram Screening. TECHNIQUE: CC & MLO views were obtained. ??This digital study was evaluated with the assistance of Computer-Aided Detection. COMPARISON FILM: Yes 02/09/19 [facility] ?? FINDINGS: ??Mammographically, the breast tissue is almost entirely fat. ?? There are no dominant masses, suspicious micro calcifications or areas of architectural distortion. Miriam Callahan DO MAMMO * COLONOSCOPY (08/29/2018 7:57 AM CDT) 08/29/2018 7:57 AM CDT Narrative Transcriptions Yusuf Espinosa MD - 08/29/2018 8:38 AM CDT Patient Name: Angelina Radford Procedure Date: 08/29/2018 Gender: Female Date of : 1950 Admit Type: Ambulatory Procedure: Colonoscopy Proceduralist: Yusuf Espinosa [facility] Referring MD: Branden Woods Indications/Pre-Op Diagnosis: Screening for colorectal malignantneoplasm Medications: Propofol per Anesthesia Procedure Description: The procedure, indications, potential complications, (bleeding, perforation, infection, adverse medication reaction, missed lesionsor polyps) and alternatives available were explained to the patient, who appeared to understand and indicated this. Opportunity for questionswas provided and informed consent obtained. The colonoscopy was passed through the anus and advanced to 5 cm into the ileum. The colonoscopy was somewhat difficult due to a redundant colon and a tortuous colon. Successful completion of the procedurewas aided by applying abdominal pressure. The patient tolerated the procedure well. The quality of the bowel preparation was evaluatedusing the BBPS ([place] Bowel Preparation Scale) with scores of: Right Colon= 3, Transverse Colon = 3 and Left Colon = 3. The total BBPS scoreequals 9. The quality of the bowel preparation was excellent. Complications: No immediate complications. Estimated blood loss: Minimal. Estimated Blood Loss & Specimen: Specimen collected: Yes and sent to Laboratory Findings: A 2 mm polyp was found in the rectum. The polyp was sessile. Thepolyp was removed with a piecemeal technique using a cold biopsy forceps. Resection and retrieval were complete. The exam was otherwise without abnormality on direct and retroflexion views. Impressions/Post-Op Diagnosis: - One 2 mm polyp in the rectum, removed piecemeal using a cold biopsy forceps. Resected and retrieved. - The examination was otherwise normal on direct and retroflexionviews. Recommendation: - Patient has a contact number available for emergencies. The signsand symptoms of potential delayed complications were discussed with the patient. Return to normal activities tomorrow. Written discharge instructions were provided to the patient. - Resume previous diet. - Continue present medications. - Repeat colonoscopy in 5 years for surveillance. Moderate Sedation: All monitoring and sedation per anesthesia. Yusuf Espinosa, 08/29/2018 8:38:16 AM This report has been signed electronically. Note Initiated On: 08/29/2018 7:57 AM Yusuf Espinosa MD PROCEDURE ORD from Last 3 Months or Most Recently Relevant to Health Maintenance Advance Directives Documents on File Type Date Recorded Patient Furnace Attendant Expl anation Healthcare Directive 12/19/2018 12:05 PM * Full Code (Latest Code Status on File) Date Activated Date Inactivated Comments 08/29/2018 6:59 AM 08/29/2018 11:51 AM * Full Code Date Activated Date Inactivated Comments 11/19/2016 6:05 AM 11/19/2016 11:28 AM * Full Code Date Activated Date Inactivated Comments 03/24/2016 7:57 AM 03/24/2016 11:15 AM * Full Code Date Activated Date Inactivated Comments 03/24/2016 6:15 AM 03/24/2016 7:57 AM * Full Code Date Activated Date Inactivated Comments 12/11/2013 6:08 PM 12/12/2013 4:59 PM Care Teams Analytical Data Miner Relationship Specialty Start Date End Date Jasmin Hodgson DO [address] [place] [address] PCP - General Internal Medicine 07/06/22
== END 2024-01-18 09:42 | disposition home or self-care (01) ==
PROVIDERS: Visit Provider Family Medicine
DX: M54.16 Radiculopathy, lumbar region (principal); M51.360 Other intervertebral disc degeneration, lumbar region with discogenic back pain only
CPT/HCPCS: 62323; J0702; Q9966

== ENCOUNTER 2024-05-16 14:08 | Outpatient (CLI) | payer MEDICARE, SELFPAY | END 2024-05-16 14:09 | disposition home or self-care (01) | PROVIDERS: PCP Internal Medicine; Visit Provider Family Medicine | DX: M54.16 Radiculopathy, lumbar region (principal); M51.369 Other intervertebral disc degeneration, lumbar region without mention of lumbar back pain or lower extremity pain | CPT/HCPCS: 62323; J0702; Q9966 ==

== ENCOUNTER 2025-01-24 11:24 | Outpatient (CLI) | payer MEDICARE, SELFPAY ==
[2025-01-24 14:03] LABS: Cholesterol* 156 mg/dL (90-199); HDL Cholesterol* 84 mg/dL (>=50); Triglycerides* 87 mg/dL (40-149)
== END 2025-01-24 11:25 | disposition home or self-care (01) ==
LOC: NPINS 11:25
PROVIDERS: PCP Family Medicine; Visit Provider Internal Medicine Cardiovascular Disease
DX: E78.5 Hyperlipidemia, unspecified (principal)
CPT/HCPCS: 80061

== ENCOUNTER 2025-02-16 10:33 | Outpatient (CLI) | payer MEDICARE, SELFPAY | END 2025-02-16 10:34 | disposition home or self-care (01) | LOC: INJ CL 10:34 | PROVIDERS: PCP Family Medicine; Visit Provider Family Medicine | DX: M54.16 Radiculopathy, lumbar region (principal); M48.062 Spinal stenosis, lumbar region with neurogenic claudication; M51.369 Other intervertebral disc degeneration, lumbar region without mention of lumbar back pain or lower extremity pain | CPT/HCPCS: 62323; Q9966 ==